=== PATIENT | male | born 1995 | race Caucasian/White ===

== ENCOUNTER 2019-03-24 04:56 | Emergency (ER) | payer OTHER ==
[~2019-03-24] VITALS: Wt 63.5 kg
[2019-03-24 04:59] VITALS: BP 114/63; PULSE 107; RESP 18
[2019-03-24] MEDS ORDERED: ACETAMINOPHEN 650MG/20.3ML CUP PO STA (05:20)
--- NOTE | 2019-03-24 05:54 | ERD ---
ER Documentation Chief Complaint Chief Complaint LAC TO L SIDE SCALP AT HAIRLINE HPI 23-year-old male tripped and fell near a tree while inebriated tonight. Sustained a laceration on his left hairline on his forehead and left anterior ear in the tragus area. No history of loss of consciousness, visual changes, neck pain, deficits. Tetanus is up-to-date. ROS All systems reviewed and are negative except as per history of present illness. Allergies Allergies: Coded Allergies: No Known Allergy (Unverified , 03/24/19) Physical Exam Vitals Vital Signs Date Temp Pulse Resp B/P (MAP) Pulse Ox O2 O2 Flow FiO2 Time Delivery Rate 03/24/19 98.6 107 18 114/63 96 04:59 (80) Physical Exam Const: No acute distress Head: 1 cm laceration at the left upper forehead at the hairline. 0.75 cm laceration to the left tragus. No involvement of the cartilage. No active bleeding. Eyes: Normal Conjunctiva eyes Wolfgang. ENT: Normal External Ears, Nose and Mouth. Neck: Full range of motion. No meningismus. Nontender. Resp: Clear to auscultation bilaterally Cardio: Regular rate and rhythm, no murmurs Abd: Soft, non tender, non distended. Normal bowel sounds Skin: No petechiae or rashes Back: No midline or flank tenderness Ext: No cyanosis, or edema Neur: Awake and alert Psych: Normal Mood and Affect Results 24 hrs Current Medications Medications Dose Sig/Tobi Start Time Status Last (Trade) Ordered Route PRN Stop Time Admin Dose Reason Admin 650 mg ONCE STAT 03/24/19 DC 03/24/19 Acetaminophen PO 05:20 05:51 (Tylenol 03/24/19 05:21 Liquid) Lidocaine 20 ml ONCE ONCE 03/24/19 DC (Xylocaine SC 06:00 1% (Mdv) 20 03/24/19 06:01 ml) Procedures/MDM 23-year-old male presents with left forehead laceration left ear external laceration after falling today. He has no signs or symptoms suggest intracranial bleeding, fracture, neck injury, deficits, additional compl ications. Laceration repaired by mid-level provider. See note. Patient will be discharged home with recommendations for 2-day wound check in 5 days suture removal. He should return sooner for fevers, redness, vomiting, new or worsening symptoms of head injury or infection as directed and aftercare instructions. Laceration Repair by me: Anesthesia: 1% lidocaine locally Location: left forehead superior to hairline Tendon/Joint/Nerves: No injury Foreign body: None detected after copious irrigation and exploration Technique: 2 Simple Interrupted Sutures, 1 corner stitch Complexity: No subcutaneous sutures/mucosal repair/edge excision Post Closure Length: 2 cm Laceration Repair by me: Anesthesia: 1% lidocaine locally Location: Freddie of left helix Tendon/Joint/Nerves: No injury Foreign body: None detected after copious irrigation and exploration Technique: 3 Simple Interrupted Sutures Complexity: No subcutaneous sutures/mucosal repair/edge excision Post Closure Length: 2 cm Dermabond to superficial laceration in triangular fossa in left helix Patient's bleeding was easily controlled with repair. No evidence of compartment syndrome, neurologic injury, vascular injury, open joint, tendon laceration, or foreign body. Patient is appropriate for outpatient follow up. 48 hour wound check. Scar minimization instructions given. Departure Diagnosis: Primary Impression: Laceration Condition: Stable Patient Instructions: Laceration, Face, Suture Or Tape (Child) Additional Instructions: 2 days wound check and 5 days suture removal. Recheck sooner for vomiting, fevers, new worsening symptoms. Take Tylenol for pain. CARMELO CALVILLO MD March 24, 2019 05:54 CAITY [place] NP March 24, 2019 06:43
[2019-03-24] MEDS ORDERED: LIDOCAINE 1% (MDV) 20 ML INJ SC ONE (06:00)
== END 2019-03-24 07:01 | disposition home or self-care (01) ==
LOC: FTE 04:56
DX: S01.81XA Laceration without foreign body of other part of head, initial encounter (principal); S01.312A Laceration without foreign body of left ear, initial encounter; W01.0XXA Fall on same level from slipping, tripping and stumbling without subsequent striking against object, initial encounter; Y92.9 Unspecified place or not applicable

== ENCOUNTER 2019-04-12 22:45 | Emergency (ER) | payer SELFPAY ==
[~2019-04-12] VITALS: Ht 172.7 cm; Wt 64.4 kg
[2019-04-12 22:50] VITALS: BP 125/69; PULSE 74; RESP 18; Ht 172.7 cm; Wt 64.4 kg
== END 2019-04-12 23:23 | disposition left against medical advice (07) ==
LOC: E/R 22:45
DX: Z53.21 Procedure and treatment not carried out due to patient leaving prior to being seen by health care provider (principal)